=== PATIENT | male | born 1955 | race Hispanic/Latino ===

== ENCOUNTER 2016-07-18 12:59 | Emergency (ER) | payer MEDICARE ==
[~2016-07-18] VITALS: Ht 175.3 cm; Wt 66.8 kg
[2016-07-18 13:02] VITALS: BP 142/88; PULSE 90; RESP 22; O2SAT 97
[2016-07-18] MEDS ORDERED: IBUP-1827 PO (13:17)
[2016-07-18] MEDS ORDERED: COUGH SYRUP OTC (13:17)
--- NOTE | 2016-07-18 14:02 | ED.REPORT ---
HPI-Back Pain 40 and Over Date of Service Jul 18, 2016 ED Provider: Delia Martinez History of Present Illness: left shoulder and back pain for 3 weeks fell down at home. did not seek help at the time. [facility], last seen 1 month ago. 02/20 pain Nursing Notes Stated Complaint: CHEST PAIN, BACK PAIN, LEFT UPPER EXTREMITY PAIN Chief Complaint: Back Pain or Injury Nursing Notes Reviewed: Yes Allergies: Coded Allergies: No Known Allergies (Unverified Allergy, Unknown, 07/18/16) Scheduled PRN Ibuprofen (Ibuprofen) 600 Mg Tablet 600 MG PO QID PRN PRN For Pain Miscellaneous Medications ([Cough Syrup Otc]) General Time Seen by MD: 14:01 Chief Complaint Back pain, Other (shoulder pain) Hx Obtained From: Patient Sudden in Onset?: Yes Severity: Current: Pain level 10 out of 10 Past Medical History Past Medical History chronic back pain 07/18/2016 Reports: Asthma (used inhaler yesterday), Denies: Diabetes mellitus Past Surgical History back surgery time 1, not helpful Smoking History Current Every Day Smoker (2 cig a day for 35 years) Social History Alcohol Use: "Social" Drug Use: THC Occupation homeless, does not want custodial information , no work or school 07/18/2016. patient states he is homeless but fell at home. When asked about this, he replies that he fell at his sister's house. 07/18/2016 Ambulatory Status Independent Review of Systems Basic Review of Systems Eyes: Vision NL, No discharge Skin: No bruising, No rash, No itch Psychiatric: Normal thought content Physical Exam Initial Vital Signs Vital Signs (First) Date Time Temp Pulse Resp B/P Pulse Ox O2 Delivery O2 Flow Rate FiO2 07/18/16 13:02 36.4 90 22 142/88 97 Room Air Initial VS: Reviewed, Vital signs normal Head / Eyes: Atraumatic, Normocephalic, PERRL ENT: Mucous membranes moist, Conjunctiva normal, No scleral icterus Neck: Supple, Non-tender, Full range of motion Lymphatic: No lymphadenopathy Extremities: Vascular intact, Neuro intact, No swelling, No tenderness Skin: Warm, Dry, No cyanosis Psychiatric: Mood/affect normal, Behavior normal, Normal thought content General/Constitutional: Awake, Alert, No acute distress, Well appearing, Well developed, Well hydrated, Well nourished, Cooperative, Not toxic appearing Wheezing / Retractions: Positive: Wheeze localized (upper lobes, very faint) Cardiovascular: Heart rate NL, Regular rhythm, Heart sounds NL, No gallop, No murmurs, No rubs Abdomen: Atraumatic, Soft, Non-tender Back: Atraumatic, Inspection NL, Full range of motion, Painless range of motion Neurologic: Oriented X3, Speech NL, No motor deficits, No sensory deficits, CN II - XII intact, Reflexes equal bilat Interpretation & Diagnostics Interpretation & Diagnostics: PROCEDURE: X-RAY LEFT SHOULDER, MINIMUM TWO VIEWS ([id number]) INDICATIONS: Pain following fall. TECHNIQUE: 3 views of the shoulder were acquired. COMPARISON: [facility], CR, XR SHOULDER 4 VW LT, 10/28/2015, 10:22. FINDINGS: Bones: No fractures or dislocations. No suspicious bony lesions. Visualized ribs appear intact. Osteoarthritic degenerative changes noted in the acromioclavicular joint. Soft tissues: No suspicious soft tissue calcifications. IMPRESSION: No fracture. No acute osseous lesion. If symptoms and/or clinical suspicion for pathology persists, further assessment with repeat radiographs or advanced imaging (e.g. CT, MRI or bone scan) may be helpful for further assessment. Lab Results Interpretation Result Diagram: 07/18/16 1454 07/18/16 1454 Test 07/18/16 14:54 White Blood Count 10.5th/mm3 (3.8-10.1) Red Blood Count 4.78mil/mm3 (4.40-5.80) Hemoglobin 14.8g/dL (13.8-17.2) Hematocrit 43.7% (41.0-50.0) Mean Corpuscular Volume 91.4fL (81-100) Mean Corpuscular Hemoglobin 31.0pg (27.0-35.0) Mean Corpuscular Hemoglobin Concent 33.9% (32.0-37.0) Red Cell Distribution Width 13.4% (12.3-15.4) Platelet Count 248bil/L (150-400) Neutrophils (%) (Auto) 62.8% (40-74) Lymphocytes (%) (Auto) 24.8% (14-46) Monocytes (%) (Auto) 8.2% (4-12) Eosinophils (%) (Auto) 3.6% (0-5) Basophils (%) (Auto) 0.4% (0-3) Sodium Level 138mEq/L (134-144) Potassium Level 4.0mEq/L (3.5-5.2) Chloride Level 102mEq/L (97-108) Carbon Dioxide Level 23mmol/L (18-29) Blood Urea Nitrogen 19mg/dL (8-27) Creatinine 0.93mg/dL (0.76-1.27) Estimat Glomerular Filtration Rate 88mL/min (>59) Glucose Level 93mg/dL (60-99) Calcium Level 8.7mg/dL (8.5-10.1) Total Bilirubin 0.3mg/dL (0.0-1.2) Aspartate Amino Transf (AST/SGOT) 68U/L (0-50) Alanine Aminotransferase (ALT/SGPT) 59U/L (0-44) Alkaline Phosphatase 75U/L (25-160) Troponin T < 0.010ug/L (0.0-0.011) Total Protein 6.9g/dL (6.4-8.4) Albumin 4.1g/dL (3.4-5.0) Hold [place] Top Tube Received (Received) Lab Results Interpretation: EKG normal X-Ray Chest Interpretation Chest Xray Interpretation: DICATIONS: wheezing TECHNIQUE: 2 views of the chest were acquired. COMPARISON: [facility], , CHEST 2VW, 01/15/2013, 18:23. FINDINGS: Surgical changes and devices: None. Lungs and pleura: No pleural effusions or pneumothorax. Lungs are clear. Mediastinum: Mediastinal contours are normal. Heart size is normal. Bones and chest wall: No suspicious bony abnormalities. Soft tissues appear unremarkable. IMPRESSION: No acute cardiopulmonary disease process. Dictated by: Lucia Waldrop MD, PhD on 07/18/2016 at 15:11 Approved by: Lucia Waldrop MD, PhD on 07/18/2016 at 15:12 Re-Eval/Medical Decision Med Decision/Clinical Course 61 year old male presents for evualation of fall that occured 3 weeks ago. Many compliants of back and shoulder pain. X-ray is negative for any fracture. No muscle wasting observed. Scrap Sawyer strength equal. Labs with mild elevation in liver enzymes. Patient reporting decrease in pain with toradol. Lungs cleared after neb. No sign of cardiac issues or fracture. Exam is most consistent with MSK pain Discharge & Departure Impression: Primary Impression: Low back pain Chronicity: chronic Additional Impression: Chronic shoulder pain Laterality: left Qualified Code: M25.512 - Pain in left shoulder Disposition: Home Patient Instructions: Chronic Pain Management (ED), Low Back Strain (ED) Additional Instructions: The chest x-ray is normal. The shoulder x-ray is normal. The troponin is negative. Your labs are normal with the exception of a mild elevation in liver enzymes. Urine does not show any sign of infection. The EKG is normal. You received an injection of toradol. You are being provided the pill version of this medication. Please follow with [facility] in the next week or two.At this point in time no acute injuries or problems are identified. Referrals: Viviane Bejarano MD (PCP) EDSupervising Provider for APC: Christoph Jernigan MD copies to: Viviane Bejarano MD, Sue ARNP Jul 18, 2016 14:02
[2016-07-18] MEDS ORDERED: Albuterol-Ipratropium 3 mL Inhalation Solution NEB ONE (14:15)
[2016-07-18 14:27] VITALS: PULSE 67; RESP 20
[2016-07-18 15:05] LABS: BASOPHILS % (AUTO) 0.4 % (0-3); EOSINOPHILS % (AUTO) 3.6 % (0-5); MONOCYTES % (AUTO) 8.2 % (4-12); Mean Corpuscular Volume 91.4 fL (81-100); NEUTROPHILS % (AUTO) 62.8 % (40-74); Platelet Count 248 bil/L (150-400)
--- NOTE | 2016-07-18 15:13 | DRSVH ---
PROCEDURE: X-RAY CHEST, TWO VIEWS ([id number]) INDICATIONS: wheezing TECHNIQUE: 2 views of the chest were acquired. COMPARISON: [facility], CR, CHEST 2VW, 01/15/2013, 18:23. FINDINGS: Surgical changes and devices: None. Lungs and pleura: No pleural effusions or pneumothorax. Lungs are clear. Mediastinum: Mediastinal contours are normal. Heart size is normal. Bones and chest wall: No suspicious bony abnormalities. Soft tissues appear unremarkable. IMPRESSION: No acute cardiopulmonary disease process. Dictated by: Lucia Waldrop MD, PhD on 07/18/2016 at 15:11 Approved by: Lucia Waldrop MD, PhD on 07/18/2016 at 15:12
--- NOTE | 2016-07-18 15:15 | DRSVH ---
PROCEDURE: X-RAY LEFT SHOULDER, MINIMUM TWO VIEWS ([id number]) INDICATIONS: Pain following fall. TECHNIQUE: 3 views of the shoulder were acquired. COMPARISON: [facility], CR, XR SHOULDER 4 VW LT, 10/28/2015, 10:22. FINDINGS: Bones: No fractures or dislocations. No suspicious bony lesions. Visualized ribs appear intact. Os teoarthritic degenerative changes noted in the acromioclavicular joint. Soft tissues: No suspicious soft tissue calcifications. IMPRESSION: No fracture. No acute osseous lesion. If symptoms and/or clinical suspicion for patholog y persists, further assessment with repeat radiographs or advanced imaging (e.g. CT, MRI or bone scan ) may be helpful for further assessment. Dictated by: Lucia Waldrop MD, PhD on 07/18/2016 at 15:12 Approved by: Lucia Waldrop MD, PhD on 07/18/2016 at 15:13
[2016-07-18] MEDS ORDERED: Ketorolac 30 mg/mL 2 mL Inj IM ONE (15:25)
[2016-07-18 15:40] LABS: TROPONIN T < 0.010 ug/L (0.0-0.011)
== END 2016-07-18 16:03 | disposition home or self-care (01) ==
LOC: SED 12:59
DX: M54.5 Low back pain (principal); M25.512 Pain in left shoulder; G89.29 Other chronic pain; W18.39XA Other fall on same level, initial encounter; Y93.89 Activity, other specified; Y92.009 Unspecified place in unspecified non-institutional (private) residence as the place of occurrence of the external cause; Y99.8 Other external cause status; J45.909 Unspecified asthma, uncomplicated; Z98.890 Other specified postprocedural states; F17.200 Nicotine dependence, unspecified, uncomplicated; Z59.0 Homelessness
CPT/HCPCS: 36415; 71020; 73030; 80053; 81002; 84484; 85025; 93005; 94664; 96372; 99285; J1885; J7620

== ENCOUNTER 2016-08-07 08:56 | Emergency (ER) | payer MEDICARE ==
[~2016-08-07] VITALS: Ht 172.7 cm; Wt 65.9 kg
[~2016-08-07 08:56] MED LIST: COUGH SYRUP OTC; IBUP-1827 PO
[2016-08-07 08:59] VITALS: BP 140/88; PULSE 74; RESP 18; O2SAT 99
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
[2016-08-07] MEDS ORDERED: Lidocaine 1% 50 mL Inj NERVEBLOCK ONE (09:15)
--- NOTE | 2016-08-07 09:46 | DRSVH ---
PROCEDURE: X-RAY FINGERS, TWO VIEWS INDICATIONS: concern for 3rd fingertip FB TECHNIQUE: AP hand, 2 views of the 3rd digit acquired. COMPARISON: [facility], CR, XR FINGER(S) LT 2VW, 10/28/2015, 10:22. FINDINGS: Bones: No fractures or dislocations. No bony erosions. No suspicious bony lesions. Soft tissues: There is a small soft tissue density measuring approximately 1-2 mm projecting over th e sided soft tissues in the distal 3rd digit suspicious for a small foreign body. IMPRESSION: 1. New small density in the 3rd digit distally suspicious for small foreign body as described. Dictated by: Lobito Bailey M.D. on 08/07/2016 at 9:42 Approved by: Lobito Bailey M.D. on 08/07/2016 at 9:45
[2016-08-07] MEDS ORDERED: TdaP Vaccine 0.5 mL Inj IM ONE (09:50)
[2016-08-07] MEDS ORDERED: SULF1TAB35 PO (09:55)
== END 2016-08-07 10:05 | disposition home or self-care (01) ==
LOC: SED 08:56
DX: S60.453A Superficial foreign body of left middle finger, initial encounter (principal); T79.8XXA Other early complications of trauma, initial encounter; W25.XXXA Contact with sharp glass, initial encounter; W45.8XXA Other foreign body or object entering through skin, initial encounter; Y92.9 Unspecified place or not applicable; Y93.89 Activity, other specified; Y99.8 Other external cause status; M54.9 Dorsalgia, unspecified; G89.29 Other chronic pain; J45.909 Unspecified asthma, uncomplicated; F17.200 Nicotine dependence, unspecified, uncomplicated; Z87.828 Personal history of other (healed) physical injury and trauma; Z59.0 Homelessness; Z23 Encounter for immunization